=== PATIENT | female | born 1990 | race American Indian/Alaskan Native ===

== ENCOUNTER 2018-01-28 19:17 | Emergency (ER) | payer MEDICAID ==
[2018-01-28 20:48] VITALS: TEMP 98
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
[2018-01-28 23:23] VITALS: BP 124/62; PULSE 80; RESP 12; O2SAT 100
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
== END 2018-01-28 23:22 | disposition home or self-care (01) ==
LOC: ED 19:17
DX: S02.5XXA Fracture of tooth (traumatic), initial encounter for closed fracture (principal); S02.40EA Zygomatic fracture, right side, initial encounter for closed fracture; S09.90XA Unspecified injury of head, initial encounter; S10.91XA Abrasion of unspecified part of neck, initial encounter; Y04.0XXA Assault by unarmed brawl or fight, initial encounter; M26.601 Right temporomandibular joint disorder, unspecified
CPT/HCPCS: 70450; 70486; 96372; 99283; J1885